=== PATIENT | female | born 1995 | race Caucasian/White ===

== ENCOUNTER 2020-12-13 19:06 | Emergency (ER) | payer OTHER ==
[~2020-12-13] VITALS: Ht 157.5 cm; Wt 93.0 kg
--- OUTSIDE RECORDS SUMMARY | 2020-12-13 20:02 | XMS ---
PreManage Notification: LIZZY BURNETT Security Varnish Dipper Events No recent Security Events currently on file CRITERIA MET - PDMP CARE PROVIDERS EFREM CANNON Nurse Practitioner: Primary Care 07/25/2015-Current PHONE: [phone] Cecelia has no Care Guidelines for this patient. ETiti VISIT COUNT (12 MO.) 4 [facility] [place] TOTAL 5 NOTE: Visits indicate total known visits. ED/UCC VISIT TRACKING (12 MO.) 12/13/2020 19:07 [facility] TYPE: Emergency COMPLAINT: - BACK AND ABDOMINAL PAIN 11/05/2020 11:39 [facility] TYPE: Emergency DIAGNOSES: - Dizziness 07/09/2020 19:22 [facility] TYPE: Emergency DIAGNOSES: - lumb on face - Abscess - Cellulitis of face - Facial Swelling 04/28/2020 12:19 [facility] TYPE: Emergency DIAGNOSES: - Morning Sickness - Mild hyperemesis gravidarum - Emesis/10 Wks PG 03/27/2020 21:54 [facility] TYPE: Emergency DIAGNOSES: - Dehydration - Unspecified abdominal pain - Elevated white blood cell count, unspecified - Other specified related conditions, first trimester - Abdominal Pain () - Constipation, unspecified - abdominal pain 6weeks - abdominal pain <6weeks INPATIENT VISIT TRACKING (12 MO.) 11/08/2020 09:14 [facility] TYPE: Obstetrics DIAGNOSES: - Other specified personal risk factors, not elsewhere classified - Other complications of the puerperium, not elsewhere classified - Pain, unspecified [facility] DIAGNOSES: - Supervision of high risk , unspecified, third trimester 09/29/2020 05:34 [facility] TYPE: Obstetrics DIAGNOSES: - labor without delivery, third trimester - Headache, unspecified - Epilepsy, unspecified, not intractable, without status epilepticus - White matter disease, unspecified - PTL - Contractions - Benign intracranial hypertension 09/28/2020 17:56 [facility] TYPE: Obstetrics [email or web address]
[2020-12-13] MEDS ORDERED: KEPPRA100 MG/1 M PO (22:16)
[2020-12-13] MEDS ORDERED: FEOSOL325 MG PO (22:17)
== END 2020-12-14 02:02 | disposition home or self-care (01) ==
LOC: ED 19:06
DX: O99.893 Other specified diseases and conditions complicating puerperium (principal); R10.2 Pelvic and perineal pain; O99.355 Diseases of the nervous system complicating the puerperium; G43.909 Migraine, unspecified, not intractable, without status migrainosus; G40.909 Epilepsy, unspecified, not intractable, without status epilepticus; Z88.0 Allergy status to penicillin; Z88.8 Allergy status to other drugs, medicaments and biological substances; Z88.5 Allergy status to narcotic agent; Z79.899 Other long term (current) drug therapy
CPT/HCPCS: 76830; 76856; 80053; 81001; 83690; 84703; 85025; 87070; 87205; 96374; 96375; 96376; 99284-25; J1885; J2405; J3010; J7030

== ENCOUNTER 2022-03-27 21:14 | Emergency (ER) | payer OTHER ==
[~2022-03-27] VITALS: Ht 157.5 cm; Wt 101.0 kg
[~2022-03-27 21:14] MED LIST: FEOSOL325 MG PO; KEPPRA100 MG/1 M PO
--- OUTSIDE RECORDS SUMMARY | 2022-03-27 21:16 | XMS ---
PreManage Notification: LIZZY BURNETT Security Enterprise Integration Architect Events No recent Security Events currently on file CRITERIA MET - PDMP CARE PROVIDERS EFREM CANNON Nurse Practitioner: Primary Care 07/25/2015-Current PHONE: [phone] Cecelia has no Care Guidelines for this patient. Ravindra VISIT COUNT (12 MO.) [address] [facility] [address] [facility] [place] TOTAL 1 NOTE: Visits indicate total known visits. ED/UCC VISIT TRACKING (12 MO.) 03/27/2022 21:15 [facility] TYPE: Emergency COMPLAINT: - HEADACHE, VISION PROBLEM INPATIENT VISIT TRACKING (12 MO.) No inpatient visits to display in this time frame [email or web address]
[2022-03-27] MEDS ORDERED: LEVETIRACETAM1000 MG (21:31)
[2022-03-27] MEDS ORDERED: GABAPENTIN100 MG (21:31)
[2022-03-27] MEDS ORDERED: NORETHINDRONE0.35 MG PO (21:31)
[2022-03-27] MEDS ORDERED: SUMATRIPTAN SUC50 MG PO (21:31)
[2022-03-27] MEDS ORDERED: EUTHYROX25 MCG PO (21:32)
[2022-03-27] MEDS ORDERED: ACETAZOLAMIDE500 M1 PO (21:32)
[2022-03-28] MEDS ORDERED: HYDROCODON-ACE1 EA10 PO (00:35)
[2022-03-28] MEDS ORDERED: CLEOCIN HCL300 MG PO (01:14)
--- NOTE | 2022-03-28 11:56 | EKG ---
[facility] [address] [place], [place] [address] Signed Sinus tachycardia Nonspecific T wave abnormality Abnormal ECG No previous ECGs available Confirmed by FILIBERTO NAVA MD ([id number]) on 03/28/2022 11:56:18 AM Electronically Signed By: FILIBERTO NAVA MD 03/28/22 1156 PATIENT NAME: BURNETTLIZZY ALEJO JIM Electrocardiogram DATE OF : 89 PHYSICIAN: FILIBERTO NAVA MD REPORT #: [id number] REPORT IS CONFIDENTIAL AND NOT TO BE RELEASED WITHOUT AUTHORIZATION
== END 2022-03-28 01:26 | disposition home or self-care (01) ==
LOC: ED 21:14
DX: G93.2 Benign intracranial hypertension (principal); Z20.822 Contact with and (suspected) exposure to COVID-19; G40.909 Epilepsy, unspecified, not intractable, without status epilepticus; G43.909 Migraine, unspecified, not intractable, without status migrainosus; Z88.0 Allergy status to penicillin; Z88.5 Allergy status to narcotic agent; Z88.8 Allergy status to other drugs, medicaments and biological substances; Z79.899 Other long term (current) drug therapy
CPT/HCPCS: 36415; 80053; 81001; 84703; 85025; 85651; 86140; 87502; 93005; 93010; 96374; 96375; 96376; 99284-25; C9803; J1120; J1885; J3010; U0003

== ENCOUNTER 2022-08-16 11:02 | Emergency (ER) | payer OTHER ==
[~2022-08-16] VITALS: Ht 157.5 cm; Wt 100.7 kg
[~2022-08-16 11:02] MED LIST changes: +ACETAZOLAMIDE500 M1 PO; +CLEOCIN HCL300 MG PO; +EUTHYROX25 MCG PO; +GABAPENTIN100 MG; +HYDROCODON-ACE1 EA10 PO; +LEVETIRACETAM1000 MG; +NORETHINDRONE0.35 MG PO; +SUMATRIPTAN SUC50 MG PO
--- OUTSIDE RECORDS SUMMARY | 2022-08-16 11:06 | XMS ---
PreManage Notification: LIZZY BURNETT Security Dietitian Events No recent Security Events currently on file CRITERIA MET - PDMP CARE PROVIDERS EFREM CANNON Nurse Practitioner: Primary Care 07/25/2015-Current PHONE: [phone] Cecelia has no Care Guidelines for this patient. ETiti VISIT COUNT (12 MO.) 1 [facility]id Reece TOTAL 3 NOTE: Visits indicate total known visits. ED/UCC VISIT TRACKING (12 MO.) 08/16/2022 11:04 [facility] TYPE: Emergency COMPLAINT: - R FLANK TO GROIN PAIN 05/21/2022 23:02 [facility] TYPE: Emergency DIAGNOSES: - Hyperemesis gravidarum with metabolic disturbance - Flank Pain - Acute cystitis without hematuria 03/27/2022 21:15 [facility] TYPE: Emergency COMPLAINT: - HEADACHE, VISION PROBLEM DIAGNOSES: - Epilepsy, unspecified, not intractable, without status epilepticus - Migraine, unspecified, not intractable, without status migrainosus - Allergy status to penicillin - Allergy status to narcotic agent - Other assisted (current) drug therapy - Contact with and (suspected) exposure to COVID-19 - Allergy status to other drugs, medicaments and biological substances - Headache, unspecified - Benign intracranial hypertension INPATIENT VISIT TRACKING (12 MO.) 08/15/2022 14:45 [facility] TYPE: Obstetrics 07/01/2022 09:36 [facility] TYPE: Obstetrics [id number]
[2022-08-16] MEDS ORDERED: METOCLOPRAMIDE10 MG PO (11:25)
[2022-08-16] MEDS ORDERED: TRAZODONE HCL50 MG (11:25)
[2022-08-16] MEDS ORDERED: ONDANSETRON ODT4 MG PO (15:18)
[2022-08-16] MEDS ORDERED: HYDROCODON-ACE1 EA10 PO (15:18)
== END 2022-08-16 15:35 | disposition home or self-care (01) ==
LOC: ED 11:02
DX: O99.891 Other specified diseases and conditions complicating pregnancy (principal); N23 Unspecified renal colic; O99.352 Diseases of the nervous system complicating pregnancy, second trimester; G43.909 Migraine, unspecified, not intractable, without status migrainosus; G40.909 Epilepsy, unspecified, not intractable, without status epilepticus; Z88.0 Allergy status to penicillin; Z88.5 Allergy status to narcotic agent; Z88.8 Allergy status to other drugs, medicaments and biological substances; Z79.899 Other long term (current) drug therapy; Z3A.18 18 weeks gestation of pregnancy
CPT/HCPCS: 36415; 76775; 76815; 80053; 81003; 83690; 85025; 96374; 99284-25; A9270; J2405; J7030